=== PATIENT | male | born 1970 | race Caucasian/White ===

== ENCOUNTER 2021-02-28 | Emergency (ER) | payer SELFPAY ==
[2021-02-28 09:05] LABS: GFR > 60 ML/MIN (>=60 (CALC)); GFR FOR AFR.AMER. > 60 ML/MIN (>=60 (CALC))
[2021-02-28 09:12] LABS: HEMATOCRIT 40.3 % (39.0-50.0); HEMOGLOBIN 13.5 g/dl (14.0-18.0); IMMATURE GRANULOCYTES 0.6 % (0.0-5.0); MEAN CELL VOLUME 92.4 fL CALC (80.0-100.0); MEAN CORPUSCULAR HGB CONC 33.5 g/dL CAL (32.0-36.0); NEUT# 2.23 thou/uL (1.82-7.42); RED BLOOD COUNT 4.36 mill/uL (4.70-6.10); RED CELL DISTRI WIDTH 12.2 % (11.5-15.5)
[2021-02-28 09:23] LABS: ALKALINE PHOSPHATASE 78 u/l (38-126); ANION GAP 11 (6-22 (CALC)); BILIRUBIN, TOTAL 0.7 mg/dL (0.0-1.4); BUN 12 mg/dL (9-20); BUN/CREATININE RATIO 19 (12-20 (CALC)); CARBON DIOXIDE 27 mmol/l (22-30); CHLORIDE 100 mmol/l (95-108); CREATININE 0.7 mg/dL (0.7-1.3); GFR > 60 ML/MIN (>=60 (CALC)); GFR FOR AFR.AMER. > 60 ML/MIN (>=60 (CALC)); LIPASE 120 u/l (23-300); POTASSIUM 4.1 mmol/l (3.5-5.1); SGOT/AST 43 u/l (17-59); SODIUM 134 mmol/l (137-146); TOTAL PROTEIN 8.1 g/dL (6.3-8.2)
[2021-02-28 10:07] LABS: URINE BILIRUBIN - DIPSTICK NEGATIVE (NEGATIVE); URINE BLOOD DIPSTICK MODERATE (NEGATIVE); URINE COLOR YELLOW; URINE GLUCOSE - DIPSTICK NEGATIVE (NEGATIVE); URINE KETONE NEGATIVE (NEGATIVE); URINE LEUK ESTERASE NEGATIVE (NEGATIVE); URINE PROTEIN - DIPSTICK TRACE mg/dL (NEG-TRACE); URINE SPECIFIC GRAVITY 1.015; URINE UROBILINOGEN - DIPSTICK 0.2 E.U./dL (0.2)
[2021-02-28 10:08] LABS: URINE NITRITE - DIPSTICK POSITIVE (Negative)
[2021-02-28 10:09] LABS: URINE EPITHELIAL CELLS FEW EPI/hpf (0-FEW)
[2021-02-28 10:10] LABS: URINE BACTERIA FEW hpf; URINE RBC 0-2 RBC/hpf (0-5)
[2021-02-28] MEDS ORDERED: NITROFURANTN100 M2 PO (10:50)
== END 2021-02-28 11:09 | disposition home or self-care (01) | DRG 690 ==
PROVIDERS: Family Medicine
DX: N39.0 Urinary tract infection, site not specified (principal); B96.20 Unspecified Escherichia coli [E. coli] as the cause of diseases classified elsewhere; Z21 Asymptomatic human immunodeficiency virus [HIV] infection status
CPT/HCPCS: Q9967